=== PATIENT | male | born 1940 | race Two or more races ===

== ENCOUNTER 2018-10-07 19:11 | Emergency (ER) | payer MEDICARE, OTHER ==
[~2018-10-07] VITALS: Ht 180.3 cm; Wt 63.5 kg
[2018-10-07] MEDS ORDERED: SODIUM CHLORIDE 0.9% 1,000 ML IVB ONE (19:20)
[2018-10-07] MEDS ORDERED: ETOMIDATE (2MG/ML) 20ML VIAL IV ONE (19:30)
[2018-10-07 19:32] VITALS: BP 156/55
[2018-10-07] MEDS ORDERED: PIPERACILLIN-TAZOB 3.375GM 100 ML IV ONE (19:45)
[2018-10-07] MEDS ORDERED: AZITHROMYCIN 500MG/ 250ML 250 ML IV ONE (19:45)
[2018-10-07] MEDS ORDERED: DEXTROSE 10% 1,000 ML IV ONE (20:00)
[2018-10-07] MEDS ORDERED: DEXTROSE (50%) 50ML SYRG IV ONE (20:00)
[2018-10-07 20:45] LABS: Basophils # (auto) 0 uL; Eosinophils # (auto) 0 uL; Lymphocytes # (auto) 0.1 uL; Mean Corpuscular Hgb Conc. 34.2 g/dL (32.0-36.0); Monocytes # (auto) 0 uL; Neutrophils # (auto) 0.2 uL; Platelet Count (auto) 47 10^3/uL (140-450)
[2018-10-07 20:47] LABS: Basophils % (auto) 0.5 % (0.0-2.0); Eosinophils % (auto) 2.5 % (0.0-7.0); Hematocrit 16.8 % (41.0-53.0); Lymphocytes % (auto) 31.2 % (10.0-50.0); Mean Corpuscular Volume 119.8 fL (80.0-100.0); Monocytes % (auto) 4.7 % (0.0-12.0); Neutrophils % (auto) 61.1 % (37.0-80.0); Red Blood Cells 1.41 10^6/uL (4.5-5.90); Red Cell Distribution Width 18.2 % (11.8-14.3)
[2018-10-07 20:56] LABS: Hemoglobin 5.8 g/dL (13.5-17.5); White Blood Cell 0.3 10^3/uL (4.4-10.8)
[2018-10-07 21:04] LABS: Alcohol, Urine < 3.0 mg/dL (0-5); Amphetamine Screen, Urine NEGATIVE (NEGATIVE); Barbiturate Scree,Urine NEGATIVE (NEGATIVE); Benzodiazephine Screen, Urine NEGATIVE (NEGATIVE); Cannabinoid Screen, Urine NEGATIVE (NEGATIVE); Cocaine Screen, Urine NEGATIVE (NEGATIVE); Opiate Scree,Urine POSITIVE (NEGATIVE); Phencyclidine Screen, Urine NEGATIVE (NEGATIVE); Urine Bacteria FEW /hpf (None Seen); Urine Blood 2+ /uL (Negative); Urine Hyaline Cast FEW /lpf (0 - 2); Urine Mucus FEW (None Seen); Urine Specific Gravity 1.024 (1.001-1.035); Urine WBC 58 /hpf (0 - 3); Urine WBC Clumps PRESENT /hpf (None Seen)
[2018-10-07] MEDS ORDERED: NOREPINEPHRINE 8 MG/250ML KIT 250 ML IV SCH (21:05)
[2018-10-07 21:08] LABS: INR 2.99 (0.9-1.15); Prothrombin Time 30.1 sec (9.27-12.13)
[2018-10-07 21:12] LABS: Partial Thromboplastin Time 132.8 sec (23.78-33.04)
[2018-10-07] MEDS ORDERED: NOREPINEPHRINE 8 MG/250ML KIT 250 ML IV ONE (21:13)
[2018-10-07] MEDS ORDERED: SODIUM BICARBONATE 8.4 % INJ 50ML VIAL IV ONE (21:15)
[2018-10-07] MEDS ORDERED: VANCOMYCIN 1GM/250ML 250 ML IV ONE (21:15)
[2018-10-07] MEDS ORDERED: POTASSIUM CHL 20MEQ/100ML 100 ML IV ONE (21:45)
[2018-10-07 22:10] VITALS: BP 86/51
[2018-10-07] MEDS ORDERED: SODIUM CHLORIDE 0.9% 1,900 ML IV ONE (23:00)
[2018-10-07] MEDS ORDERED: DOPamine 1600MCG/ML D5W 250 ML IV SCH (23:08)
[2018-10-07] MEDS ORDERED: DOPamine 1600MCG/ML D5W 250 ML IV ONE ×2 (23:09→23:30)
[2018-10-07 23:15] VITALS: BP 86/56
[2018-10-07] MEDS ORDERED: PHENYLEPHRINE INJ 20 MG in SODIUM CHL 0.9% 250 ML IV SCH (23:54)
[2018-10-08] MEDS ORDERED: PHENYLEPHRINE IV 250 ML IV ONE (00:01)
[2018-10-08] MEDS ORDERED: SODIUM BICARBONATE 8.4 % INJ 50ML VIAL IV ONE (00:30)
[2018-10-08] MEDS ORDERED: ACETAMINOPHEN 325 MG TAB PO PRN (00:30)
[2018-10-08] MEDS ORDERED: ALBUMIN 5% 250 ML IV ONE (00:30)
[2018-10-08] MEDS ORDERED: VANCOMYCIN PER PHARMACY 0 MG IV SCH (00:30)
[2018-10-08] MEDS ORDERED: SODIUM CHLORIDE 0.9% 1,000 ML IV SCH (00:30)
[2018-10-08] MEDS ORDERED: NITROGLYCERIN 0.4 MG SL TAB SL PRN (00:30)
[2018-10-08] MEDS ORDERED: MORPHINE SULF INJ 2 MG/ML SYRINGE 1ML IV PRN (00:30)
[2018-10-08] MEDS ORDERED: PIPERACILLIN-TAZOB 3.375GM 100 ML IV SCH (06:00)
[2018-10-08] MEDS ORDERED: PANTOPRAZOLE 40 MG/10 ML VIAL IV SCH (10:00)
== END 2018-10-08 01:11 ==
LOC: EDBD 19:11 → ER 19:17
DX: R65.21 Severe sepsis with septic shock (principal); J96.90 Respiratory failure, unspecified, unspecified whether with hypoxia or hypercapnia; J18.9 Pneumonia, unspecified organism; D61.818 Other pancytopenia; R41.82 Altered mental status, unspecified
CPT/HCPCS: 31500; 36415; 36600; 51702; 70450; 71045; 71250; 74176; 80307; 81001; 82140; 82805; 82962; 83605; 83880; 85025; 85610; 85730; 87040; 87070; 87077; 87086; 87186; 87205; 93005; 94761; 96365; 96366; 96368; 99291; 99292; A6257; J0456; J1265; J2370; J2543; J3370; J3480; J7030; J7050; 80053; 94002; 96367